=== PATIENT | female | born 1980 | race Caucasian/White ===

== ENCOUNTER 2019-09-09 15:30 | Emergency (ER) | payer OTHER, SELFPAY ==
[2019-09-09 15:33] VITALS: BP 101/81; PULSE 108; RESP 20; TEMP 37.7; O2SAT 100
[2019-09-09 15:44] LABS: Basophils Percent Auto 0.3 % (0.2-1.2); Eosinophils Absolute Auto 0.1 K/mm3 (0-0.3); Eosinophils Percent Auto 1.4 % (0-4.4); Hemoglobin 12.8 g/dL (12.0-15.0); Immature Granulocyte Absolute 0.04 K/mm3 (0.00-0.031); Immature Granulocyte Percent A 0.6 % (0-0.5); Lymphocytes Absolute Auto 0.53 K/mm3 (0.9-3.2); Lymphocytes Percent Auto 7.5 % (18.3-44.2); Mean Corpuscular HGB Conc 31.2 g/dl (32-36); Mean Corpuscular Hemoglobin 20.9 pg (26-34); Mean Platelet Volume 10.3 fl (7.4-10.4); Monocytes Absolute Auto 0.5 K/mm3 (0.1-0.6); Monocytes Percent Auto 6.5 % (2.6-8.5); Neutrophils Absolute Auto 5.9 K/mm3 (1.3-6.7); Neutrophils Percent Auto 83.7 % (45.5-73.1); Platelet Count Result 241 k/mm3 (150-375); Red Blood Count 6.12 M/mm3 (4.2-5.4); Red Cell Distribution Width 21.2 % (11.5-14.5); White Blood Count 7.1 K/mm3 (4.5-10.0)
[2019-09-09 15:56] LABS: Alanine Aminotransferase 24 U/L (4-35); Albumin Level 4.5 g/dL (3.5-5.1); Alkaline Phosphatase 78 U/L (38-126); Aspartate Amino Transferase 28 U/L (14-36); Bilirubin,Total 0.5 mg/dL (0.2-1.3); Blood Urea Nitrogen 12 mg/dL (7-17); Calcium 9.4 mg/dL (8.4-10.2); Carbon Dioxide 22 mmol/L (22-30); Chloride 104 mmol/L (98-107); Estimated CRCL calculation 99 ml/min; Estimated Glomerular Filt Rate > 60; Glucose 92 mg/dL (65-105); Lipase 33 U/L (23-300); Potassium 3.9 mmol/L (3.4-5.0); Sodium 139 mmol/L (137-145)
--- NOTE | 2019-09-09 16:18 | ED.NAVMDI ---
HPI - Nausea/Vomiting/Diarrhea General Chief complaint: Nausea/Vomiting/Diarrhea Stated complaint: n/v Time Seen by Provider: 09/09/19 16:15 Source: patient Mode of arrival: ambulatory Limitations: no limitations History of Present Illness HPI Narrative: A 38 y/o female presents to the ED with c/o N/V. Pt states that at 0200 today she started to vomit. The N/V was accompanied by BECK, cough, diffuse ABD pain, chills, and body aches. She notes that the ABD pain only occurs after she vomits or coughs. Pt went to [place] ED at 0900 today and was told she was negative for Influenza. The patient reports that the ED staff at [place] only did a nose swab, so she decided to come to [place] ED for a second opinion. She states that she has been in contact with a child with similar symptoms. Pt denies diarrhea, dysuria, and hematuria. She has a PMHx of head ache and tubal ligation. Pt is a nonsmoker and nondrinker. MD elicited complaint: nausea and vomiting Onset (ago): hour(s) (1400) Associated abdominal pain: Yes Location of pain: diffuse Context: sick contacts Associated symptoms: cough, fever/chills, headaches and other (ABD pain, body aches) Related Data Allergies Allergy/AdvReac Type Severity Reaction Status Date / Time No Known Allergies Allergy Unknown Verified 01/13/07 13:56 Review of Systems Review of Systems: All systems reviewed & are unremarkable except as noted in HPI and below Constitutional: Constitutional: Reports body ache(s) and Reports chills Respiratory: Respiratory: Reports cough Gastrointestinal: Gastrointestinal: Reports abdominal pain (Diffuse), Denies diarrhea, Reports nausea and Reports vomiting Genitourinary: Genitourinary: Denies hematuria and Denies dysuria Neurologic: Reports headache(s) PMFSH Past Medical History Medical History (Updated 09/09/19 @ 18:34 by Mony Jacobs MD) Head ache Surgical History Surgical History (Updated 09/09/19 @ 16:24 by Amparo Ghosh) History of tubal ligation Social History Social History (Updated 09/09/19 @ 16:27 by Amparo Ghosh) Smoking status: Never smoker Alcohol intake: never Substance use: never Exam Const: General: cooperative, no acute distress and alert Nutritional Appearance: well nourished Orientation/consciousness: patient oriented x3 Limitations: no limitations HENMT: Mouth: Yes lip normal and Yes moist mucous membranes Resp: Effort & Inspection: normal respiratory effort Auscultation: clear to auscultation bilaterally Cardio: Rate: regular rate Rhythm: regular rhythm GI: GI Palp: Yes Soft to palpation, Yes Tenderness to palpation present (GI) (Mild diffuse upper), No Guarding due to palpation present (GI) and No Rebound tenderness present Auscultation: normal bowel sounds Skin: General skin exam: normal color Neuro: General: patient oriented x3 Cognition (Neuro): normal cognition Speech: normal speech Extrem: General: normal to inspection, full ROM and no clubbing, cyanosis or edema Psych: Mental Status: mental status grossly normal Affect: normal affect Attitude: cooperative Course Course Emergency Course: Patient feeling better after medications and fluids. Heart rate decreased. Patient pallor improved and looking better. Discussed with patient diagnosis viral syndrome and symptomatic management. Vital Signs Vital signs: Vital Signs Temperature 99.8 F H 09/09/19 15:33 Pulse Rate 108 H 09/09/19 15:33 Respiratory Rate 20 09/09/19 15:33 Blood Pressure 101/81 09/09/19 15:33 Pulse Oximetry 100 09/09/19 15:33 Temperature 99.8 F H 09/09/19 15:33 Pulse Rate 94 09/09/19 17:34 Respiratory Rate 20 09/09/19 15:33 Blood Pressure 102/76 09/09/19 17:34 Pulse Oximetry 100 09/09/19 15:33 MDM - Nausea/Vomiting/Diarrhea Lab Data Attestation: I reviewed the patient's lab results. Result diagrams: 09/09/19 15:39 09/09/19 15:39 Labs: Lab Results 09/09
[2019-09-09] MEDS: KETOROLAC 30 MG/ML VIAL (*BKC) IV PUSH (16:44)
[2019-09-09] MEDS: ONDANSETRON INJ 4 MG/2 ML VIAL IV PUSH (16:44)
[2019-09-09] MEDS: LACTATED RINGERS 1,000 ML 999 ML IV CONT (16:45)
[2019-09-09 17:32] VITALS: BP 109/64; PULSE 89
[2019-09-09 17:33] VITALS: BP 112/65; PULSE 94
[2019-09-09 17:34] VITALS: BP 102/76; PULSE 94
[2019-09-09 18:00] LABS: Add Urine Microscopic? YES; Appearance Urine Clear (Clear); Bacteria Urine Trace /hpf; Bilirubin Urine Negative (Negative); Blood Urine Negative (Negative); Color Urine Yellow (Yellow); Glucose Urine UA Negative (Negative); Ketones Urine 1+ mg/dL (Negative); Leukocyte Esterase Ur Trace LEU/UL (Negative); Mucus Urine Rare /lpf; Nitrate Urine Negative (Negative); Protein Urine 1+ mg/dL (Negative); RBC Urine 0-2 /hpf (0-2); Specific Grav Ur 1.024 (1.001-1.035); Squamous Epithelial Cell Urine Many /hpf (Few)
[2019-09-09 19:07] VITALS: BP 118/76; PULSE 85; RESP 12; O2SAT 100
== END 2019-09-09 19:07 | disposition home or self-care (01) ==
PROVIDERS: Emergency Provider Emergency Medicine
DX: B34.9 Viral infection, unspecified (principal); E86.0 Dehydration
CPT/HCPCS: 36415; 80053; 81001; 81025; 83690; 85025; 87081; 87804; 87880; 96361; 96374; 96375; 99284; J1885; J2405; J7120